=== PATIENT | male | born 1965 | race Caucasian/White ===

== ENCOUNTER 2020-02-09 07:09 | Observation (INO) ==
--- NOTE | 2020-02-01 13:58 | Anesthesiology Consultation ---
Date of Service February 01, 2020 Assessment & Plan (1) Encounter for pre-operative examination: Chart Review Chart Review: Acceptable Risk for Surgery (pending 02/05 Covid testing ) and Patient NOT seen in Pre Admission Testing Per nursing assessment 02/01/2020, patient works in [employer]- works on [employer] outside- does not wear mask. Unable to social distance. No known Covid positive contacts or Covid related symptoms. Pt scheduled for preop Covid testing 02/06/20. Will be working after Covid test done (unable to take off). Pt most likely will need rule - surgeon's office informed. Will also put on OR sheet- patient most likely will be last case. History Surgery Operation Date: 02/09/20 07:00 Proposed Procedures p Left Thyroid Lobectomy with Isthmusectomy - Juve Burden, DO Height/Weight Height: 5 ft 9 in Weight: 119.748 kg Allergies Allergy/AdvReac Type Severity Reaction Status Date / Time tramadol AdvReac Intermediate Tachycardia Verified 02/01/20 12:18 Medications Home Medications Medication Instructions Recorded Confirmed Last Taken furosemide 20 mg tablet 20 mg PO DAILY PRN tab 02/21/19 02/01/20 Unknown losartan 25 mg tablet 25 mg PO PM 02/21/19 02/01/20 Unknown montelukast 10 mg tablet 10 mg PO DAILY PRN tab 02/21/19 02/01/20 Unknown ibuprofen 600 mg tablet 600 mg PO TID PRN tab 10/19/19 02/01/20 Unknown multivitamin 1 tab PO PM 12/26/19 02/01/20 Unknown vitamin B complex 1 tab PO DAILY PRN 12/26/19 02/01/20 Unknown zinc gluconate 30 mg tablet 30 mg PO PM 12/26/19 02/01/20 Unknown albuterol sulfate 0.63 mg INHALATION QID PRN 02/01/20 02/01/20 Unknown albuterol sulfate 1 inh INHALATION QID PRN 02/01/20 02/01/20 Unknown budesonide 0.5 mg INHALATION DAILY PRN 02/01/20 02/01/20 Unknown fluticasone propionate [Flovent 1 puff INHALATION DAILY PRN 02/01/20 02/01/20 Unknown HFA] netta (Zingiber officinalis) 250 mg PO BID 02/01/20 02/01/20 Unknown [netta extract] Past Medical History Medical History Asthma GETS BRONCHITIS A FEW TIMES A YEAR (SEASONAL)> INH USE EVERY FEW MONTHS> FALL/WINTER MAY HAVE TO USE MORE FREQUENT ALMOST DAILY Edema IN LOWER LEGS JUST WHEN SITTING LONG PERIODS AT WORK Hypertension Osteoarthritis Seasonal allergies Past Family History Family History Mother Diabetes Past Surgical History Surgical History H/O colonoscopy H/O hernia repair [facility] H/O knee surgery [employer] History of bronchoscopy AT [facility] DUE TO FREQUENT BRONCHITIS EPISODES APPROX 4 MONTHS AGO> NO FURTHER FOLLOW UP History of carpal tunnel surgery RIGHT History of laminectomy L5 History of tooth extraction WISDOM TEETH Hx of surgical procedure HEAD WOUND STITCHED > NOT WITH ANESTHESIA Skin tag removal bilateral inner thighs AND UNDER ARMS Social History Smoking Status: Never smoker Do You Dip or Chew Tobacco: No Hx Alcohol Use: No Hx Substance Use: No substance use type: does not use Testing Laboratory Results Laboratory Tests 01/23/20 01/23/20 13:27 13:27 WBC 6.07 Hgb 13.5 L Hct 39.8 L Plt Count 209 Sodium 142 Potassium 3.5 Chloride 108 H Carbon Dioxide 26 BUN 9 Creatinine 0.84 Glucose 142 H Electrocardiogram Date: 01/23/20 Findings: + NSR @ (80)
[~2020-02-09 07:09] MED LIST: CEFAZOLIN 3000MG 72.5 ML IV SCH; LACTATED RINGER'S 1,000 ML IV SCH
[2020-02-09] MEDS ORDERED: ONDANSETRON INJ 2 MG/ML 2 ML VIAL ONE ×2 (07:55→11:50)
[2020-02-09] MEDS ORDERED: DEXAMETHASONE SOD INJ 4 MG/ML VIAL ONE (07:55)
[2020-02-09] MEDS ORDERED: GLYCOPYRROLATE 0.2 MG/ML VIAL ONE (07:55)
[2020-02-09] MEDS ORDERED: MIDAZOLAM HCL 1 MG/ML 2ML VIAL ONE (07:55)
[2020-02-09] MEDS ORDERED: LIDOCAINE HCL 2% 2 ML VIAL/AMP(20MG/ML) INFIL ONE (07:55)
[2020-02-09] MEDS ORDERED: PROPOFOL IV EMULSION 10 MG/ML 20 ML VIAL IV ONE (07:55)
[2020-02-09] MEDS ORDERED: fentaNYL citrate 100 MCG/2 ML VIAL ONE ×2 (07:55)
[2020-02-09] MEDS ORDERED: NEOSTIGMINE METHYLSULFATE 5 MG/5 ML SYR ONE (07:55)
[2020-02-09] MEDS ORDERED: ROCURONIUM BROMIDE 10 MG/ML 5 ML VIAL IV ONE (08:06)
[2020-02-09] MEDS ORDERED: LARYING-O-JET KIT (LTA) ONE (08:06)
[2020-02-09] MEDS ORDERED: ONDANSETRON INJ 2 MG/ML 2 ML VIAL IV PRN ×2 (08:26→13:26)
[2020-02-09] MEDS ORDERED: PROMETHAZINE HCL 12.5 MG in SODIUM CHLORIDE 0.9% 50 ML IV PRN (08:26)
[2020-02-09] MEDS ORDERED: HYDROmorphone INJ 0.5 MG/0.5 ML SYR IV PRN (08:26)
[2020-02-09] MEDS ORDERED: ATROPINE SULFATE 0.1 MG/ML 10ML SYR IV PRN (08:26)
[2020-02-09] MEDS ORDERED: LABETALOL HCL IV 5 MG/ML 20ML IV PRN (08:26)
--- NOTE | 2020-02-09 08:27 | History & Physical Bridge Note ---
Date of Service February 09, 2020 History & Physical Bridge Note I have examined the patient, reviewed the History & Physical and in the interval since the performance of the History & Physical I have noted the following changes of clinical significance: no changes noted
[2020-02-09] MEDS ORDERED: BUPIVACAINE 0.5 % 5 MG/1 ML MPF 30ML VIAL ONE (09:04)
[2020-02-09] MEDS ORDERED: EPINEPHrine INJ 1 MG/ML AMP ONE (09:04)
[2020-02-09] MEDS ORDERED: PHENYLEPHRINE 100MCG/ML 5ML SYR ONE (10:17)
[2020-02-09] MEDS ORDERED: ePHEDrine sulfate 50 MG/ML SYR ONE (10:17)
[2020-02-09] MEDS ORDERED: ACETAMINOPHEN 1000 MG/100 ML IV IV ONE (10:28)
[2020-02-09] MEDS ORDERED: SUGAMMADEX SODIUM 200 MG/2 ML VIAL IV ONE (10:29)
[2020-02-09] MEDS ORDERED: DexMEDEtomidine HCL IV 100 MCG/ML VIAL ONE (10:29)
[2020-02-09] MEDS ORDERED: ARISTA ABSORBABLE HEMOSTAT 3GM TOP ONE (11:56)
--- NOTE | 2020-02-09 13:04 | Anesthesiology Progress Note ---
Date of Service February 09, 2020 Anesthesia Post Procedure Vital Signs Vital Signs: Temp Pulse Pulse Resp BP Pulse Ox 02/09/20 12:50 36.6 C 84 12 136/83 96 02/09/20 12:40 83 12 115/69 95 02/09/20 12:30 36 C L 81 13 103/70 95 02/09/20 08:04 36.8 C 86 20 166/93 H 97 Pain Intensity Neck: Pain Intensity: 4 Transfer of Care Handoff Completed per policy Notes Mental Status: alert / awake / arousable Patient Amnestic to Procedure: Yes Nausea / Vomiting: adequately controlled Pain: adequately controlled Airway Patency, RR, SpO2: stable & adequate BP & HR: stable & adequate Hydration State: stable & adequate Anesthetic Complications: no major complications apparent
--- NOTE | 2020-02-09 13:11 | Operative Report ---
PG Post Operative Report Pre & Post Diagnosis Operation Date: 02/09/20 08:45 Pre-Op Diagnosis: Thyroid Nodule Post-Op Diagnosis: Thyroid Nodule I identified the patient and participated in the time-out.: Yes Procedure Operation Date: 02/09/20 08:45 Actual Procedures p Left Thyroid Lobectomy with Isthmusectomy(Left) - Juve Burden DO Surgeon Juve Burden DO Hspt Tutor [facility] [place] Estimated Blood Loss 20 Findings Consistent with Post-Op Diagnosis Specimens left lobe of thyroid, isthmus Description of Procedure After informed consent was obtained the patient was taken to the operating room and placed in supine position. After successful intubation the head was placed in a slight extension and a towel roll placed. The upper chest was shaved and then the entire upper chest and neck were sterilely prepped and draped in usual fashion. I began with a curvilinear incision 2 cm above the sternal notch along the skin creases. Cautery was then used to carry this down through the soft tissue and divide the platysma muscle. We then created flaps both superiorly and inferiorly using traction countertraction and small amounts of cautery. A self retaining retractor was subsequently placed. Next I opened the connective tissue between the anterior jugular veins. We were able to retract the strap muscles laterally and did not have to divide them. This allowed me to open the capsule surrounding the thyroid gland itself. I began by mobilizing the gland with my index finger and small amounts of cautery. We performed almost the entire dissection by moving from lateral to medial. After skeletonizing and identifying the superior pole vessels I took these down using the LigaSure device. I stayed as close to the gland as possible. I was able to identify what I believe was 1 of the superior parathyroid glands was able to keep it out of harm's way. I was unable to identify an inferior parathyroid gland on the left. After dividing the superior vessels I was able to identify the middle thyroid vein on the left and also divided this using the LigaSure device. Again I continued to use primarily blunt dissection with small amounts of cautery to free up the gland. This allowed me to take down the branches of the inferior thyroid vessels staying as close to the gland as possible. I continued to roll the gland lateral to medial. Eventually I had the gland completely freed up. I used the LigaSure device to take down the isthmus of the gland staying on the right side of the trachea. The specimen was then handed off to be sent to pathology. At the end of the procedure there was adequate hemostasis. I thoroughly irrigated the wound. No other gross visible or palpable abnormality was noted. Nicolle powder was placed on all the raw surfaces to help prevent hematoma and seroma formation. We held pressure for several minutes. Again no evidence of any bleeding was identified. The strap muscles were reapproximated using 2-0 Vicryl in simple rapid fashion. Soft tissue was irrigated. Platysma was reapproximated using 3-0 Vicryl and skin was closed using 4-0 Monocryl in a running subcuticular technique. Marcaine was injected around the incision for postoperative analgesia. Benzoin Steri-Strips and an OpSite dressing were placed. The patient was awakened extubated and transferred recovery in stable condition. My physician medical receptionist medical assistant was present for the entire case. He was instrumental in retraction throughout my dissection. He also helped with prepping the patient as well as with wound closure and dressing placement. I attest to the content of the Intraoperative Record and any orders documented therein. Any exceptions are noted below.
[2020-02-09] MEDS ORDERED: MoRPHine SULFATE 2 MG/ML CARP IV PRN (13:26)
[2020-02-09] MEDS ORDERED: BUDESONIDE 0.5 MG/2 ML VIAL (PULMICORT) NEB PRN (13:26)
[2020-02-09] MEDS ORDERED: ALBUTEROL HFA 8 GM INHALER INH PRN (13:26)
[2020-02-09] MEDS ORDERED: MONTELUKAST SODIUM 10 MG TABLET PO PRN (13:26)
[2020-02-09] MEDS ORDERED: FLUTICASONE FUROATE 100MCG 14 PUFFS/INHALER INH PRN (13:36)
[2020-02-09] MEDS: ACETAMINOPHEN 1,000 MG/100 ML VIAL IV SCH (17:06)
[2020-02-09] MEDS: ALBUTEROL 0.083% NEBU SOLN 3 ML VIAL NEB PRN (17:10)
[2020-02-09] MEDS: OXYCODONE HCL IR 5 MG TAB (IMMEDIATE RELEASE) PO PRN ×2 (17:25→23:32)
[2020-02-09] MEDS ORDERED: LOSARTAN POTASSIUM 25 MG TAB PO SCH (21:00)
[2020-02-10] MEDS: ACETAMINOPHEN 1,000 MG/100 ML VIAL IV SCH ×2 (02:06→11:00)
[2020-02-10] MEDS: OXYCODONE HCL IR 5 MG TAB (IMMEDIATE RELEASE) PO PRN ×2 (05:32→12:07)
[2020-02-10 06:16] LABS: Basophils # (auto) 0.01 K/uL (0-0.2); Basophils % (auto) 0.1 %; Hematocrit (blood only) 40.9 % (42-52); Hemoglobin 14.1 g/dL (14.0-18.0); Immature Granulocytes # (auto) 0.05 K/uL (0.00-0.02); Immature Granulocytes % (auto) 0.3 %; Lymphocytes # (auto) 1.68 K/uL (1.2-3.4); Mean Corpuscular Hemoglobin 30.6 pg (25-34); Mean Corpuscular Volume 88.7 fL (80-100); Mean Platelet Volume 9.4 fL (7.4-10.4); Monocytes # (auto) 1.21 K/uL (0.11-0.59); Monocytes % (auto) 7.9 %; Neutrophils # (auto) 12.34 K/uL (1.4-6.5); Neutrophils % (auto) 80.7 %; Platelet Count 250 K/uL (130-400); RDW Coefficient of Variation 13.1 % (11.5-14.5); RDW Standard Deviation 41.9 fL (36.4-46.3); Red Blood Count 4.61 M/uL (4.7-6.1); White Blood Count 15.29 K/uL (4.8-10.8)
[2020-02-10 06:18] LABS: Mean Corpuscular Hgb Conc 34.5 g/dL (32-36)
[2020-02-10 06:33] LABS: Albumin Level 3.9 gm/dl (3.4-5.0); BUN Creatinine Ratio 12.4 (10-20); Calcium 8.7 mg/dl (8.5-10.1); Creatinine Clr Calc Pharmacy 129.9 ml/min; Est GFR (African American) 115.3; Est GFR (Non-African American) 99.5
[2020-02-10 06:35] LABS: Albumin Globulin Ratio 1.1 (0.9-2); Bilirubin,Total 0.8 mg/dl (0.2-1); Globulin 3.6 gm/dl (2.5-4.0); Total Protein 7.5 gm/dl (6.4-8.2)
--- NOTE | 2020-02-10 08:30 | Anesthesiology Progress Note ---
Date of Service February 10, 2020 Anesthesia Post Procedure Vital Signs Vital Signs: Temp Pulse Pulse Resp BP BP Pulse Ox 02/10/20 07:36 36.9 C 85 18 159/83 H 97 02/10/20 03:02 36.7 C 78 15 131/72 95 02/09/20 22:52 36.5 C 88 15 153/87 H 93 02/09/20 20:15 36.7 C 98 H 18 154/82 H 93 02/09/20 17:10 86 16 97 02/09/20 15:07 36.7 C 86 16 140/79 92 02/09/20 13:57 86 18 136/82 93 02/09/20 13:29 85 18 121/78 92 02/09/20 13:00 36.9 C 92 H 18 127/75 95 02/09/20 12:50 36.6 C 84 12 136/83 96 02/09/20 12:40 83 12 115/69 95 02/09/20 12:30 36 C L 81 13 103/70 95 Pain Intensity Neck: Pain Intensity: 1 Head: Pain Intensity: 5 Notes Mental Status: alert / awake / arousable and participated in evaluation Patient Amnestic to Procedure: Yes Nausea / Vomiting: adequately controlled Pain: adequately controlled Airway Patency, RR, SpO2: stable & adequate BP & HR: stable & adequate Hydration State: stable & adequate Anesthetic Complications: no major complications apparent (Patient became dizzy and anxious after versed. Do not give again in future. Patient felt nausous most of day yesterday but did not vomit. zofran effective.)
[2020-02-10] MEDS: ALBUTEROL 0.083% NEBU SOLN 3 ML VIAL NEB PRN (11:26)
--- NOTE | 2020-02-10 12:25 | Surgery Progress Note ---
Date of Service February 10, 2020 Assessment & Plan (1) Thyroid nodule: s/p left thryoid lobectomy/isthmusectomy pod 1 doing well labs look good ok for d/c. instructions given. Subjective pt seen. sore at incision but otherwise no complaint. Physical Exam Physical Exam: alert. nad. normal voice quality incision c/d/i. no hematoma. Results & Data Vital Signs (Past 12 Hours) Vital Signs Temp Pulse Pulse Resp BP BP Pulse Ox 02/10/20 12:09 36.9 C 85 89 16 154/82 H 159/83 H 97 02/10/20 11:26 89 16 97 02/10/20 07:36 36.9 C 85 18 159/83 H 97 02/10/20 03:02 36.7 C 78 15 131/72 95 PG Care Time/CCT Total # of Minutes Spent Total Time Spent with Patient: Total time spent is greater than 50% in coordination of care (as documented) at patient's floor/unit and/or counseling patient: Coding Level of Care Code None Diagnoses Thyroid nodule E04.1
--- NOTE | 2020-02-13 14:58 | Discharge Summary ---
Date of Service February 13, 2020 Principal Diagnosis Thyroid Nodule Discharge Exam awake/alert, normal voice quality Constitutional no acute distress Neck incision c/d/i, no hematoma Discharge Data Allergies Allergy/AdvReac Type Severity Reaction Status Date / Time tramadol AdvReac Intermediate Tachycardia Verified 02/09/20 07:30 Procedures Performed Operation Date: 02/09/20 08:45 Actual Procedures p Left Thyroid Lobectomy with Isthmusectomy(Left) - Juve Burden DO Hospital Course (1) Thyroid nodule: This is a 54y M who presented to [facility] on 02/09/20 for a scheduled left thyroid lobectomy and isthmusectomy with Dr. Burden for history of a thyroid nodule. The patient tolerated the surgical procedure well, see operative report for full details. The patient recovered in the PACU and was transferred to the nursing floor in stable condition for overnight observation. Post operatively the patient's diet was advanced as tolerated and pain was controlled with prn medications. His incision remained clean, dry, and intact. On POD#1 labs showed a normal calcium and parathyroid hormone. On 02/10/20 the patient was deemed stable for discharge to home. Discharge instructions given and the patient was instructed to follow up in clinic within 1-2 weeks Total Time Total Time Spent Total Time Spent (In Minutes): 5 Discharge Plan Discharge Items Patient Disposition: Home - Self-Care Reason For Visit: Thyroid Nodule Discharge Diagnosis: left thyroid lobectomy with isthmusectomy Activity: Per Instructions section Lifting: No more than 5 pounds Bathing Comment: may shower; no soaking in tubs/pools Exercise/Sports: Wait until after follow-up appointment Driving/Machine Use: do not resume driving while taking narcotics for pain Non-emergency contact: Surgeon Call non-emergency contact if: you have any medication questions, your symptoms worsen, your pain is not controlled, your pain is worsening, your pain is unusual for you, your pain is concerning for you, you have a fever, your temperature is above 101.5, your wound has increased drainage and your wound pain has increased Follow-up/Referrals: Juve Burden DO [Surgeon] - (Please call to schedule follow up in clinic within 7-10days) Pippa Finch PA-C [Primary Care Provider] - Diet: Regular Addtl Attending Provider Instructions: Pending Studies at Discharge: Yes Studies:: surgical pathology Stand-Alone Forms: My [facility], Opioid Pain Management, Work/School Release (Inpt) Medications and DC Order Prescriptions: New hydrocodone-acetaminophen [[place]] 5-325 mg tablet 1 - 2 tab PO .q4-6h PRN (Reason: pain, for initial therapy, max 6 tabs per day) Qty: 15 RF: 0 Continued zinc gluconate 30 mg tablet 30 mg PO PM RF: 0 vitamin B complex [B Complex-Vitamin B12] Tablet 1 tab PO DAILY PRN (Reason: Other) RF: 0 multivitamin Tablet 1 tab PO PM RF: 0 furosemide 20 mg tablet 20 mg PO DAILY PRN (Reason: Edema) RF: 0 montelukast 10 mg tablet 10 mg PO DAILY PRN (Reason: Allergy Symptoms) RF: 0 losartan 25 mg tablet 25 mg PO PM RF: 0 ibuprofen 600 mg tablet 600 mg PO TID PRN (Reason: Pain) RF: 0 netta extract 250 mg Capsule 250 mg PO BID RF: 0 albuterol sulfate 0.63 mg/3 mL Solution For Nebulization 0.63 mg INHALATION QID PRN (Reason: Shortness Of Breath) RF: 0 budesonide 0.25 mg/2 mL Suspension For Nebulization 0.5 mg INHALATION DAILY PRN (Reason: Shortness Of Breath) RF: 0 albuterol sulfate 90 mcg/actuation Hfa Aerosol Inhaler 1 inh INHALATION QID PRN (Reason: Shortness Of Breath) RF: 0 Flovent HFA 110 mcg/actuation Hfa Aerosol Inhaler 1 puff INHALATION DAILY PRN (Reason: Shortness Of Breath) RF: 0 Discharge Orders: Discharge Order (Routine); Ordered 02/10/20 Ordered By: Hali Townsend/Other Patient Handouts: Having Thyroid Surgery Admission Data Admit Date/Time: 02/09/20 12:13 Attending Provider: Juve Burden Admit Provider: Juve Burden Primary Care Provider: Pippa Finch Other Interventions: Discharge Summary Assessment (RN) Last Done: 02/10/20 12:09 DC Date/Time DO NOT enter until pt leaves facility: 02/10/20 13:17 Coding Level of Care Code D/C Day Management <30 mins Diagnoses Thyroid nodule E04.1
== END 2020-02-10 13:17 | disposition home or self-care (01) ==
LOC: ASU 07:09 → 3W 07:09